=== PATIENT | male | born 1945 | race Caucasian/White ===

== ENCOUNTER 2017-11-03 10:03 | Outpatient (REF) | payer MEDICARE, BC, SELFPAY ==
[2017-11-03 21:41] LABS: ALT 27 U/L (12-78); AST 26 U/L (15-37); Albumin 3.7 g/dL (3.4-5.0); Alkaline Phosphatase 70 U/L (46-116); Anion Gap 10.6 mmol/L (3-11); BUN 24 mg/dL (7-18); Bilirubin, Total 0.4 mg/dL (0.2-1.0); CO2 27.4 mmol/L (21.0-32.0); CREATININE 1.33 mg/dL (0.70-1.30); Calcium 9.3 mg/dL (8.5-10.1); Chloride 102 mmol/L (98-107); Estimated GFR 52.71 (mL/min/1.73m2); Glucose 78 mg/dL (70-100); Potassium 4.9 mmol/L (3.5-5.1); Sodium 140 mmol/L (136-145); TSH (W/Ref FT4) 0.06 uIU/mL (0.358-3.74); Total Protein 7.4 g/dL (6.4-8.2)
[2017-11-03 22:27] LABS: FREE T4 1.38 ng/dL (0.76-1.46)
== END 2017-11-03 10:04 ==
LOC: NCHCN 10:03
PROVIDERS: PCP Internal Medicine; Visit Provider Internal Medicine
DX: E03.9 Hypothyroidism, unspecified (principal); I10 Essential (primary) hypertension; F10.10 Alcohol abuse, uncomplicated
CPT/HCPCS: 80053; 84439; 84443

== ENCOUNTER 2017-12-13 11:41 | Outpatient (REF) | payer MEDICARE, BC, SELFPAY ==
[2017-12-13 20:48] LABS: ALT 30 U/L (12-78); AST 31 U/L (15-37); Albumin 3.6 g/dL (3.4-5.0); Alkaline Phosphatase 74 U/L (46-116); BUN 13 mg/dL (7-18); Bilirubin, Total 0.7 mg/dL (0.2-1.0); CREATININE 1.07 mg/dL (0.70-1.30); Calcium 8.9 mg/dL (8.5-10.1); Chloride 98 mmol/L (98-107); Glucose 113 mg/dL (70-100); Potassium 4.5 mmol/L (3.5-5.1); Sodium 134 mmol/L (136-145); Total Protein 6.9 g/dL (6.4-8.2)
[2017-12-14 19:28] LABS: TSH (W/Ref FT4) 0.09 uIU/mL (0.358-3.74)
== END 2017-12-13 12:01 ==
LOC: NCHCN 11:41
PROVIDERS: PCP Internal Medicine; Visit Provider Internal Medicine
DX: I10 Essential (primary) hypertension (principal); E03.9 Hypothyroidism, unspecified
CPT/HCPCS: 80053; 84439; 84443

== ENCOUNTER 2018-02-28 12:22 | Outpatient (REF) | payer MEDICARE, BC, SELFPAY ==
[2018-02-28 21:47] LABS: TSH (W/Ref FT4) 0.32 uIU/mL (0.358-3.74)
[2018-02-28 22:10] LABS: FREE T4 1.11 ng/dL (0.76-1.46)
== END 2018-02-28 12:42 ==
LOC: NCHCN 12:22
PROVIDERS: PCP Internal Medicine; Visit Provider Internal Medicine
DX: E03.9 Hypothyroidism, unspecified (principal)
CPT/HCPCS: 84439; 84443

== ENCOUNTER 2018-05-03 09:16 | Outpatient (REF) | payer OTHER, SELFPAY ==
[2018-05-03 23:13] LABS: TSH (W/Ref FT4) 7.87 uIU/mL (0.358-3.74)
[2018-05-03 23:33] LABS: FREE T4 1.01 ng/dL (0.76-1.46)
== END 2018-05-03 09:36 ==
LOC: NCHCN 09:16
PROVIDERS: PCP Internal Medicine; Visit Provider Internal Medicine
DX: E03.9 Hypothyroidism, unspecified (principal)
CPT/HCPCS: 84439; 84443

== ENCOUNTER 2019-01-15 13:30 | Outpatient (REF) | payer OTHER, SELFPAY ==
[2019-01-15 22:09] LABS: ALT 21 U/L (16-63); AST 31 U/L (15-37); Albumin 3.8 g/dL (3.4-5.0); Alkaline Phosphatase 96 U/L (46-116); Anion Gap 8.2 mmol/L (3-11); BUN 15 mg/dL (7-18); Bilirubin, Total 0.7 mg/dL (0.2-1.0); CO2 28.8 mmol/L (21.0-32.0); CREATININE 0.94 mg/dL (0.70-1.30); Calcium 9.5 mg/dL (8.5-10.1); Calculated LDL 140 mg/dL; Chloride 103 mmol/L (98-107); Cholesterol 227 mg/dL (50-200); Glucose 86 mg/dL (70-100); HDL Cholesterol 68 mg/dL (40-60); Potassium 4.8 mmol/L (3.5-5.1); Sodium 140 mmol/L (136-145); TSH 2.38 uIU/mL (0.36-3.74); Total Protein 7.6 g/dL (6.4-8.2); Triglyceride 96 mg/dL (30-150)
== END 2019-01-15 13:50 ==
LOC: NCHCN 13:30
PROVIDERS: PCP Internal Medicine; Visit Provider Internal Medicine
DX: I10 Essential (primary) hypertension (principal); E03.9 Hypothyroidism, unspecified; F10.10 Alcohol abuse, uncomplicated
CPT/HCPCS: 80048; 80061; 80076; 84443

== ENCOUNTER 2019-10-09 08:21 | Outpatient (REF) | payer OTHER, SELFPAY ==
[2019-10-09 21:31] LABS: Calculated LDL 154 mg/dL (<100); Cholesterol 219 mg/dL (<200); HDL Cholesterol 53 mg/dL (40-60); Triglyceride 62 mg/dL (<150)
== END 2019-10-09 08:41 ==
LOC: NCHCN 08:21
PROVIDERS: PCP Internal Medicine; Visit Provider Internal Medicine
DX: I10 Essential (primary) hypertension (principal)
CPT/HCPCS: 80061

== ENCOUNTER 2019-12-11 08:39 | Outpatient (REF) | payer OTHER, SELFPAY ==
[2019-12-11 22:02] LABS: Calculated LDL 77 mg/dL (<100); Cholesterol 136 mg/dL (<200); Glucose 84 mg/dL (74-106); HDL Cholesterol 49 mg/dL (40-60); Triglyceride 51 mg/dL (<150)
[2019-12-11 22:17] LABS: C-Reactive Protein 1.97 mg/dL (0.0-0.3)
[2019-12-11 22:56] LABS: ESR 34 mm/hr (1-20)
== END 2019-12-11 08:59 ==
LOC: NCHCN 08:39
PROVIDERS: PCP Internal Medicine; Visit Provider Internal Medicine
DX: E78.5 Hyperlipidemia, unspecified (principal); M31.5 Giant cell arteritis with polymyalgia rheumatica; Z87.39 Personal history of other diseases of the musculoskeletal system and connective tissue
CPT/HCPCS: 80061; 82947; 85652; 86140

== ENCOUNTER 2019-12-27 19:26 | Outpatient (REF) | payer OTHER, SELFPAY ==
[2019-12-31 19:06] LABS: Patient Race White; SARS-CoV-2 RNA Undetected (Undetected); SARS-CoV-2 Specimen Source Nasopharynx
== END 2019-12-27 19:46 ==
LOC: NCHCN 19:26
PROVIDERS: PCP Internal Medicine; Visit Provider Internal Medicine
DX: Z20.828 Contact with and (suspected) exposure to other viral communicable diseases (principal)
CPT/HCPCS: U0003

== ENCOUNTER 2020-02-20 11:58 | Outpatient (REF) | payer OTHER, SELFPAY ==
[2020-02-20 22:34] LABS: TSH 0.14 uIU/mL (0.36-3.74)
== END 2020-02-20 12:18 ==
LOC: NCHCN 11:58
PROVIDERS: PCP Internal Medicine; Visit Provider Internal Medicine
DX: E03.9 Hypothyroidism, unspecified (principal)
CPT/HCPCS: 84443

== ENCOUNTER 2020-04-24 18:43 | Outpatient (REF) | payer OTHER, SELFPAY ==
[2020-04-24 20:57] LABS: TSH 0.19 uIU/mL (0.36-3.74)
== END 2020-04-24 19:03 ==
LOC: NCHCN 18:43
PROVIDERS: PCP Internal Medicine; Visit Provider Internal Medicine
DX: E03.9 Hypothyroidism, unspecified (principal)
CPT/HCPCS: 84443

== ENCOUNTER 2020-07-02 10:31 | Outpatient (REF) | payer OTHER, SELFPAY ==
[2020-07-02 14:38] LABS: TSH 2.16 uIU/mL (0.36-3.74)
== END 2020-07-02 10:32 | disposition home or self-care (01) ==
LOC: NCHCN 10:31
PROVIDERS: PCP Internal Medicine; Visit Provider Internal Medicine
DX: E03.9 Hypothyroidism, unspecified (principal)
CPT/HCPCS: 84443

== ENCOUNTER 2020-11-20 15:43 | Outpatient (REF) | payer OTHER, SELFPAY ==
[2020-11-20 14:44] LABS: Anion Gap 6.9 mmol/L (3-11); BUN 11 mg/dL (7-18); CO2 29.1 mmol/L (21.0-32.0); Calcium 9.2 mg/dL (8.5-10.1); Calculated LDL 63 mg/dL (<100); Chloride 105 mmol/L (98-107); Cholesterol 142 mg/dL (<200); Glucose 83 mg/dL (74-106); HDL Cholesterol 68 mg/dL (40-60); Potassium 4.4 mmol/L (3.5-5.1); Sodium 141 mmol/L (136-145); TSH 10.65 uIU/mL (0.36-3.74); Triglyceride 57 mg/dL (<150)
== END 2020-11-20 15:44 | disposition home or self-care (01) ==
LOC: NCHCN 15:43
PROVIDERS: PCP Internal Medicine; Visit Provider Internal Medicine
DX: E03.9 Hypothyroidism, unspecified (principal); I10 Essential (primary) hypertension; E78.5 Hyperlipidemia, unspecified
CPT/HCPCS: 80048; 80061; 84443

== ENCOUNTER 2021-03-03 10:26 | Outpatient (REF) | payer OTHER, SELFPAY ==
[2021-03-03 15:17] LABS: TSH 9.76 uIU/mL (0.36-3.74)
== END 2021-03-03 10:27 | disposition home or self-care (01) ==
LOC: NCHCN 10:26
PROVIDERS: PCP Internal Medicine; Visit Provider Internal Medicine
DX: E03.9 Hypothyroidism, unspecified (principal)
CPT/HCPCS: 84443

== ENCOUNTER 2021-05-06 09:38 | Outpatient (REF) | payer OTHER, SELFPAY ==
[2021-05-06 15:01] LABS: TSH 0.09 uIU/mL (0.36-3.74)
== END 2021-05-06 09:39 | disposition home or self-care (01) ==
LOC: NCHCN 09:38
PROVIDERS: PCP Internal Medicine; Visit Provider Internal Medicine
DX: E03.9 Hypothyroidism, unspecified (principal)
CPT/HCPCS: 84443

== ENCOUNTER 2021-07-07 09:03 | Outpatient (REF) | payer OTHER, SELFPAY ==
[2021-07-07 16:22] LABS: TSH 0.23 uIU/mL (0.36-3.74)
== END 2021-07-07 09:04 | disposition home or self-care (01) ==
LOC: NCHCN 09:03
PROVIDERS: PCP Internal Medicine; Visit Provider Internal Medicine
DX: E03.9 Hypothyroidism, unspecified (principal)
CPT/HCPCS: 84443

== ENCOUNTER 2021-10-06 15:17 | Outpatient (REF) | payer OTHER, SELFPAY ==
[2021-10-06 15:45] LABS: TSH 2.19 uIU/mL (0.36-3.74)
== END 2021-10-06 15:18 | disposition home or self-care (01) ==
LOC: NCHCN 15:17
PROVIDERS: Visit Provider Internal Medicine
DX: E03.9 Hypothyroidism, unspecified (principal)
CPT/HCPCS: 84443

== ENCOUNTER 2021-10-21 18:26 | Outpatient (REF) | payer OTHER, SELFPAY ==
[2021-10-21 22:03] LABS: Abs Immature Grans 0.02 10^3/uL (0.0-0.06); Absolute Basophil Count 0.04 10^3/uL (0.0-0.2); Absolute Eosinophil Count 0.21 10^3/uL (0.0-0.7); Absolute Lymphocyte Count 1.83 10^3/uL (1.2-3.4); Absolute Monocyte Count 0.52 10^3/uL (0.1-0.8); Basophils % 0.6; Eosinophils % 3.4; HCT 36.9 % (40.0-50.0); HGB 12.8 g/dL (13.5-17.5); Immature Grans % 0.3; Lymphocytes % 29.4; MCH 30.9 pg (27.0-33.0); MCHC 34.7 % (32.0-36.0); MCV 89 fL (80-95); MPV 10.3 fL (8.0-11.0); Monocytes % 8.4; Neutrophils % 57.9; Platelet Count 233 10^3/uL (130-400); RBC 4.14 10^6/uL (4.36-5.78); RDW 12.7 % (11.8-14.1); RDW-SD 41.8 fL; WBC 6.22 10^3/uL (4.4-10.8)
[2021-10-21 22:27] LABS: ALT 31 U/L (16-63); AST 31 U/L (15-37); Albumin 3.6 g/dL (3.4-5.0); Alkaline Phosphatase 76 U/L (46-116); Anion Gap 7.9 mmol/L (3-11); BUN 16 mg/dL (7-18); Bilirubin, Total 0.6 mg/dL (0.2-1.0); CO2 27.1 mmol/L (21.0-32.0); CREATININE 1.1 mg/dL (0.70-1.30); Calcium 8.6 mg/dL (8.5-10.1); Chloride 98 mmol/L (98-107); Ferritin 56 ng/mL (26-388); Glucose 84 mg/dL (74-106); Potassium 4.5 mmol/L (3.5-5.1); Sodium 133 mmol/L (136-145); Total Protein 6.4 g/dL (6.4-8.2)
[2021-10-22 21:23] LABS: PSA, Screening 4.6 ng/mL (<=6.5)
== END 2021-10-21 18:27 | disposition home or self-care (01) ==
LOC: NCHCN 18:26
PROVIDERS: Visit Provider Nurse Practitioner Family
DX: R53.83 Other fatigue (principal); Z12.5 Encounter for screening for malignant neoplasm of prostate; D64.9 Anemia, unspecified
CPT/HCPCS: 80053; 84153; 82728; 85025

== ENCOUNTER 2021-11-17 18:26 | Outpatient (REF) | payer OTHER, SELFPAY ==
[2021-11-17 17:42] LABS: Abs Immature Grans 0.02 10^3/uL (0.0-0.06); Absolute Basophil Count 0.04 10^3/uL (0.0-0.2); Absolute Eosinophil Count 0.17 10^3/uL (0.0-0.7); Absolute Monocyte Count 0.52 10^3/uL (0.1-0.8); Basophils % 0.7; HCT 36.5 % (40.0-50.0); HGB 12.3 g/dL (13.5-17.5); Immature Grans % 0.3; Lymphocytes % 22.6; MCH 30.8 pg (27.0-33.0); MCHC 33.7 % (32.0-36.0); MCV 92 fL (80-95); Neutrophils % 64.4; Platelet Count 262 10^3/uL (130-400); RBC 3.99 10^6/uL (4.36-5.78); RDW 13.2 % (11.8-14.1); RDW-SD 44.6 fL; Reticulocyte 1.2 % (0.5-2.4); WBC 5.75 10^3/uL (4.4-10.8)
[2021-11-17 18:04] LABS: Iron 57 ug/dL (65-175); Total Iron Binding Capacity 315 ug/dL (250-450); Transferrin Sat 18 % (20-55)
[2021-11-17 18:26] LABS: Ferritin 59 ng/mL (26-388); Folate 5.8 ng/mL (8.6-20.0); Vitamin B12 533 pg/mL (193-986)
[2021-11-19 09:50] LABS: Transferrin 231 mg/dL (201-352)
== END 2021-11-17 18:27 | disposition home or self-care (01) ==
LOC: NCHCN 18:26
PROVIDERS: Visit Provider Nurse Practitioner Family
DX: D64.9 Anemia, unspecified (principal); D52.8 Other folate deficiency anemias
CPT/HCPCS: 82607; 82728; 82746; 83540; 83550; 84466; 85025; 85045

== ENCOUNTER 2021-11-25 16:49 | Outpatient (REF) | payer OTHER, SELFPAY ==
[2021-11-25 21:15] LABS: ESR 3 mm/hr (0-20)
[2021-11-25 21:30] LABS: C-Reactive Protein < 0.05 mg/dL (0.0-0.3)
[2021-11-25 21:34] LABS: Epithelial Cells Rare HPF (Negative); RBC 0-2 HPF (0-2); WBC Negative HPF (0-5)
[2021-11-25 21:35] LABS: Bacteria Rare HPF (Negative); C & S Indicated? No; Crystals Negative HPF (Negative); Mucus Negative (Negative)
[2021-11-30 12:42] LABS: IgA 518 mg/dL (85-499); Interpretation (See Note); Tissue Transglutaminase IgA 1.5 U/mL (<4.0)
== END 2021-11-25 16:50 | disposition home or self-care (01) ==
LOC: NCHCN 16:49
PROVIDERS: Visit Provider Nurse Practitioner Family
DX: D64.9 Anemia, unspecified (principal); Z79.1 Long term (current) use of non-steroidal anti-inflammatories (NSAID); R53.83 Other fatigue
CPT/HCPCS: 82784; 83516; 85652; 81015; 86140

== ENCOUNTER 2022-01-20 15:09 | Outpatient (REF) | payer OTHER, SELFPAY ==
[2022-01-20 14:15] LABS: HCT 37.4 % (40.0-50.0); HGB 12.8 g/dL (13.5-17.5); MCH 30.5 pg (27.0-33.0); MCHC 34.2 % (32.0-36.0); MCV 89 fL (80-95); Platelet Count 285 10^3/uL (130-400); RBC 4.19 10^6/uL (4.36-5.78); RDW 12.4 % (11.8-14.1); RDW-SD 40.4 fL; WBC 5.45 10^3/uL (4.4-10.8)
[2022-01-20 14:40] LABS: Ferritin 97 ng/mL (26-388)
[2022-01-20 14:42] LABS: Folate > 20.0 ng/mL (8.6-20.0)
== END 2022-01-20 15:10 | disposition home or self-care (01) ==
LOC: NCHCN 15:09
PROVIDERS: Visit Provider Nurse Practitioner Family
DX: D64.9 Anemia, unspecified (principal)
CPT/HCPCS: 85027; 82728; 82746; 83540; 83550

== ENCOUNTER 2022-07-26 11:04 | Outpatient (REF) | payer OTHER, SELFPAY ==
[2022-07-26 15:01] LABS: HCT 41.6 % (40.0-50.0); MCH 30.6 pg (27.0-33.0); MCHC 33.7 % (32.0-36.0); MCV 91 fL (80-95); MPV 10.5 fL (8.0-11.0); Platelet Count 241 10^3/uL (130-400); RBC 4.58 10^6/uL (4.36-5.78); RDW 12.6 % (11.8-14.1); RDW-SD 41.5 fL; WBC 5.62 10^3/uL (4.4-10.8)
[2022-07-26 16:04] LABS: ALT 41 U/L (16-63); AST 36 U/L (15-37); Albumin 3.7 g/dL (3.4-5.0); Alkaline Phosphatase 84 U/L (46-116); BUN 9 mg/dL (7-18); Calcium 9.1 mg/dL (8.5-10.1); Calculated LDL 76 mg/dL (<100); Chloride 100 mmol/L (98-107); Cholesterol 153 mg/dL (<200); Estimated GFR 77.04 (mL/min/1.73m2); Ferritin 102 ng/mL (26-388); Glucose 89 mg/dL (74-106); HDL Cholesterol 64 mg/dL (40-60); Potassium 4.7 mmol/L (3.5-5.1); Sodium 135 mmol/L (136-145); TSH 0.32 uIU/mL (0.36-3.74); Total Protein 7.1 g/dL (6.4-8.2); Triglyceride 65 mg/dL (<150)
== END 2022-07-26 11:05 | disposition home or self-care (01) ==
LOC: NCHCN 11:04
PROVIDERS: PCP Internal Medicine; Visit Provider Internal Medicine
DX: E78.5 Hyperlipidemia, unspecified (principal); I10 Essential (primary) hypertension; E03.9 Hypothyroidism, unspecified; Z86.2 Personal history of diseases of the blood and blood-forming organs and certain disorders involving the immune mechanism
CPT/HCPCS: 80053; 80061; 85027; 82728; 84443

== ENCOUNTER 2022-11-02 08:52 | Outpatient (REF) | payer OTHER, SELFPAY ==
--- OUTSIDE RECORDS SUMMARY | 2022-11-02 08:56 | XMS_ITS | CCD ---
Author Name Unknown Address [address] [place] [address] [phone] Organization Unknown Address [address] [place] [address] [phone] Care Team Providers Care Exercise Manager Name Role Phone MEGAN VIRAJ Attending Physician [phone] Vital Signs Unknown or Not Available. Allergies Allergy Code Allergy Type Reaction Status No Known Allergies 0 No known allergies Active Procedures Unknown or Not Available. History of Immunizations Unknown or Not Available. Problems Unknown or Not Available. Results [facility] - [place] ect Date/Time: 03/20/2021 09:54 Test Name Code Test Result Test Units Test Ref Rang e SOURCE= Anterior nasal N/A Tier- PRE-OP N/A SARS COV2 RNA: 29457-4 NEGATIVE N/A REFERENCE RANGE: NEGAT Active Medications Unknown or Not Available. Medications Administered During Visit Unknown or Not Available. Encounters Encounter Diagnosis Diagnosis Code Start Date Pre-surgery testing [id number] 03/20/2021 Social History Smoking Status Code Start Date End Date Never smoker [id number] Patient Decision Aids Unknown or Not Available. Discharge Instructions You were admitted to [facility] on 03/20/2021 08:03 with a principal diagnosis of Encounter for preprocedural laboratory examination You had the following tests done:CRYSTAL COVID RHEONIX* You were discharged from [facility] on 03/20/2021 08:03 Should you have any questions prior to discharge, please contact a member of your healthcare team. If you have left the hospital and have any questions, please contact your primary care physician. Chief Complaint and Reason For Visit Unknown or Not Available. Function Status Unknown or Not Available. Plan of Care Unknown or Not Available. Referral/Transition of Care Unknown or Not Available.
--- OUTSIDE RECORDS SUMMARY | 2022-11-02 08:56 | XMS_ITS | CCD ---
Author Name Unknown Address [address] [place] [address] [id number] Organization Unknown Address [address] [place] [address] [phone] Care Team Providers Care Oil Well Service Operator Name Role Phone ALLI COSME Attending Physician [phone] ALLI COSME Rounding (Secondary) Physicia n [phone] Vital Signs Unknown or Not Available. Allergies Allergy Code Allergy Type Reaction Status No Known Allergies 0 No known allergies Active Procedures Unknown or Not Available. History of Immunizations Unknown or Not Available. Problems Unknown or Not Available. Results Unknown or Not Available. Active Medications Unknown or Not Available. Medications Administered During Visit Unknown or Not Available. Encounters Encounter Diagnosis Diagnosis Code Start Date Metatarsalgia, left foot [id number] Social History Smoking Status Code Start Date End Date Never smoker [id number] Patient Decision Aids Unknown or Not Available. Discharge Instructions You were admitted to [facility] on 07/01/2021 13:01 with a principal diagnosis of Metatarsalgia, left foot You were discharged from [facility] on 07/01/2021 00:00 Should you have any questions prior to [...]
--- OUTSIDE RECORDS SUMMARY | 2022-11-02 08:56 | XMS_ITS | CCD ---
Author Name Unknown Address [address] [place] [address] [phone] Organization Unknown Address [address] [place] [address] [phone] Care Team Providers Care Laborer Pipeline Name Role Phone MEGAN VIRAJ Attending Physician [phone] Vital Signs Unknown or Not Available. Allergies Allergy Code Allergy Type Reaction Status No Known Allergies 0 No known allergies Active Procedures Procedure Code Procedure Type Date Colorectal Cancer Screening; Colonoscopy On Individual At High Risk G0105 CPT 03/23/2021 History of Immunizations Unknown or Not Available. Problems Unknown or Not Available. Results Unknown or Not Available. Active Medications Unknown or Not Available. Medications Administered During Visit Unknown or Not Available. Encounters Encounter Diagnosis Diagnosis Code Start Date Encounter for screening for malignant neoplasm o f colon Z1211 03/23/2021 Social History Smoking Status Code Start Date End Date Never smoker [id number] Patient Decision Aids Unknown or Not Available. Discharge Instructions You were admitted to [facility] on 03/23/2021 09:51 with a principal diagnosis of Encounter for screening for malignant neoplasm of colon You had the following procedures done:Colorectal Cancer Screening; Colonoscopy On Individual At High Risk You were discharged from [facility] on 03/23/2021 11:54 Should you have any questions prior to [...]
--- OUTSIDE RECORDS SUMMARY | 2022-11-02 08:56 | XMS_ITS | CCD ---
Author Name Unknown Address [address] [place] [address] [id number] Organization Unknown Address [address] [place] [address] [phone] Care Team Providers Care Coin Machine Collector Supervisor Name Role Phone ALLI COSME Attending Physician [phone] ALLI COSME Rounding (Secondary) Physicia n [phone] Vital Signs Unknown or Not Available. Allergies [...] Encounters Encounter Diagnosis Diagnosis Code Start Date Onychomycosis due to dermatophyte [id number] 06/24/2021 Social History Smoking Status Code Start Date End Date Never smoker [id number] Patient Decision Aids Unknown or Not Available. Discharge Instructions You were admitted to [facility] on 06/24/2021 09:52 with a principal diagnosis of Tinea unguium You were discharged from [facility] on 06/24/2021 00:00 Should you have any questions prior [...]
--- OUTSIDE RECORDS SUMMARY | 2022-11-02 08:56 | XMS_ITS | CCD ---
Author Name Unknown Address [address] [place] [address] [phone] Organization Unknown Address [address] [place] [address] [phone] Care Team Providers Care Automatic Mounter Name Role Phone VIRAJ GUZMAN Attending Physician [phone] VIRAJ GUZMAN Rounding (Secondary) Physician [phone] Vital Signs Unknown or Not Available. Allergies [...] Code Start Date End Date Never smoker [id number] Patient Decision Aids Unknown or Not Available. Discharge Instructions You were admitted to [facility] on 03/23/2021 10:42 with a principal diagnosis of Encounter for screening for malignant neoplasm of colon You were discharged from [facility] on 03/23/2021 10:44 Should you have any questions prior to [...]
--- OUTSIDE RECORDS SUMMARY | 2022-11-02 08:57 | XMS_ITS | CCD ---
Author Name Unknown Address [address] [place] [address] [id number] Organization Unknown Address [address] [place] [address] [phone] Care Team Providers Care Residential Housekeeper Name Role Phone TIFFANIE MCCRARY Attending Physician [phone] TIFFANIE MCCRARY Rounding (Secondary) Physician [phone] Vital Signs Unknown or Not Available. Allergies [...] Encounters Encounter Diagnosis Diagnosis Code Start Date Hip joint prosthesis present [id number] Social History Smoking Status Code Start Date End Date Never smoker 743454403 Patient Decision Aids Unknown or Not Available. Discharge Instructions You were admitted to [facility] on 08/21/2021 09:17 with a principal diagnosis of Presence of left artificial hip joint You were discharged from [facility] on 08/21/2021 00:00 Should you have any questions prior [...]
--- OUTSIDE RECORDS SUMMARY | 2022-11-02 08:57 | XMS_ITS | CCD ---
Author Name Unknown Address [address] [place] [address] [phone] Organization Unknown Address [address] [place] [address] [phone] Care Team Providers Care Psych Therapist Name Role Phone TIFFANIE MCCRARY Attending Physician [phone] Vital Signs Unknown or Not Available. Allergies [...] Encounters Encounter Diagnosis Diagnosis Code Start Date Presence of left artificial hip joint [id number] 08/21/2021 Social History Smoking Status Code Start Date End Date Never smoker 891111932 Patient Decision Aids Unknown or Not Available. Discharge Instructions You were admitted to [facility] on 08/21/2021 12:20 with a principal diagnosis of Presence of left artificial hip joint You were discharged from [facility] on 08/21/2021 12:20 Should you have any questions prior to [...]
--- OUTSIDE RECORDS SUMMARY | 2022-11-02 08:57 | XMS_ITS | CCD ---
Author Name Unknown Address [address] [place] [address] [phone] Organization Unknown Address [address] [place] [address] [phone] Care Team Providers Care Guidance Secretary Name Role Phone ALLI COSME Attending Physician [phone] ALLI COSME Rounding (Secondary) Physicia n [phone] Vital Signs Unknown or Not Available. Allergies [...] Code Start Date End Date Never smoker 850728136 Patient Decision Aids Unknown or Not Available. Discharge Instructions You were admitted to [facility] on 07/31/2021 16:26 with a principal diagnosis of Metatarsalgia, left foot You were discharged from [facility] on 07/31/2021 00:00 Should you have any questions prior [...]
--- OUTSIDE RECORDS SUMMARY | 2022-11-02 08:57 | XMS_ITS | CCD ---
Author Name Unknown Address [address] [place] [address] [phone] Organization Unknown Address [address] [place] [address] [phone] Care Team Providers Care Formula Weigher Name Role Phone DANIEL THOMAS Attending Physician [phone] Vital Signs Unknown or Not Available. Allergies [...] Encounters Encounter Diagnosis Diagnosis Code Start Date Personal history of nicotine dependence U41086 02/23/2022 Social History Smoking Status Code Start Date End Date Never smoker 349390263 Patient Decision Aids Unknown or Not Available. Discharge Instructions You were admitted to [facility] on 02/23/2022 07:44 with a principal diagnosis of Personal history of nicotine dependence You were discharged from [facility] on 02/23/2022 07:44 Should you have any questions prior to discharge, please contact a member of your healthcare team. If you have left the hospital and have any questions, please contact your primary care physician. Chief Complaint and Reason For Visit Chief Complaint Date of Onset AAA SCREENING Function Status Unknown or Not Available. Plan of Care Unknown or Not Available. Referral/Transition of Care Unknown or Not Available.
--- OUTSIDE RECORDS SUMMARY | 2022-11-02 08:57 | XMS_ITS | CCD ---
Author Name Unknown Address [address] [place] [address] [phone] Organization Unknown Address [address] [place] [address] [phone] Care Team Providers Care Rn Case Management Name Role Phone ALLI COSME Attending Physician [phone] ALLI COSME Rounding (Secondary) Physicia n [phone] Vital Signs Unknown or Not Available. Allergies [...] Encounters Encounter Diagnosis Diagnosis Code Start Date Ingrowing nail [id number] 03/12/2022 Social History Smoking Status Code Start Date End Date Never smoker 785448179 Patient Decision Aids Unknown or Not Available. Discharge Instructions You were admitted to [facility] on 03/12/2022 10:20 with a principal diagnosis of Ingrowing nail You were discharged from [facility] on 03/12/2022 00:00 Should you have any questions prior [...]
--- OUTSIDE RECORDS SUMMARY | 2022-11-02 08:57 | XMS_ITS | CCD ---
Author Name Unknown Address [address] [place] [address] [phone] Organization Unknown Address [address] [place] [address] [phone] Care Team Providers Care Welfare Analyst Name Role Phone ALLI COSME Attending Physician [phone] ALLI COSME Rounding (Secondary) Physicia n [phone] Vital Signs Unknown or Not Available. Allergies [...] Diagnosis Diagnosis Code Start Date Ingrowing nail [id number] 05/03/2022 Social History Smoking Status Code Start Date End Date Never smoker 293836205 Patient Decision Aids Unknown or Not Available. Discharge Instructions You were admitted to [facility] on 05/03/2022 08:55 with a principal diagnosis of Ingrowing nail You were discharged from [facility] on 05/03/2022 00:00 Should you have any questions prior [...]
--- OUTSIDE RECORDS SUMMARY | 2022-11-02 09:00 | XMS_ITS | CCD ---
Author Name Unknown Address [address] [place] [address] [phone] Organization Unknown Address [address] [place] [address] [phone] Care Team Providers Care Field Clinical Engineer Name Role Phone RENÉE CINTRON MD Attending Physician [phone] Vital Signs Unknown or Not Available. Allergies [...] Encounters Encounter Diagnosis Diagnosis Code Start Date Aftercare [id number] 10/20/2020 Social History Smoking Status Code Start Date End Date Never smoker 470677687 Patient Decision Aids Unknown or Not Available. Discharge Instructions You were admitted to [facility] on 10/20/2020 11:28 with a principal diagnosis of Aftercare following joint replacement surgery You were discharged from [facility] on 10/20/2020 11:28 Should you have any questions prior to [...]
[2022-11-02 15:43] LABS: TSH 1.67 uIU/mL (0.36-3.74)
== END 2022-11-02 08:53 | disposition home or self-care (01) ==
LOC: NCHCN 08:52
PROVIDERS: PCP Internal Medicine; Visit Provider Internal Medicine
DX: E03.9 Hypothyroidism, unspecified (principal)
CPT/HCPCS: 84443

== ENCOUNTER 2023-01-24 09:56 | Outpatient (REF) | payer MEDICARE, SELFPAY ==
[2023-01-24 16:03] LABS: HCT 38.3 % (40.0-50.0); MCHC 33.9 % (32.0-36.0); MCV 91 fL (80-95); MPV 10.7 fL (8.0-11.0); Platelet Count 202 10^3/uL (130-400); RBC 4.19 10^6/uL (4.36-5.78); RDW 13.4 % (11.8-14.1); RDW-SD 44.9 fL; WBC 4.54 10^3/uL (4.4-10.8)
[2023-01-24 16:58] LABS: ALT 29 U/L (16-63); AST 35 U/L (15-37); Albumin 3.7 g/dL (3.4-5.0); Alkaline Phosphatase 88 U/L (46-116); BUN 11 mg/dL (7-18); Bilirubin, Total 0.8 mg/dL (0.2-1.0); Calcium 9.5 mg/dL (8.5-10.1); Chloride 101 mmol/L (98-107); Estimated GFR 76.56 (mL/min/1.73m2); Ferritin 105 ng/mL (26-388); Glucose 89 mg/dL (74-106); Sodium 135 mmol/L (136-145); Total Protein 6.9 g/dL (6.4-8.2)
== END 2023-01-24 09:57 | disposition home or self-care (01) ==
LOC: NCHCN 09:56
PROVIDERS: PCP Internal Medicine; Visit Provider Internal Medicine
DX: Z86.2 Personal history of diseases of the blood and blood-forming organs and certain disorders involving the immune mechanism (principal); E87.1 Hypo-osmolality and hyponatremia; E78.5 Hyperlipidemia, unspecified
CPT/HCPCS: 80053; 85027; 82728

== ENCOUNTER 2023-08-08 14:39 | Outpatient (REF) | payer MEDICARE, SELFPAY ==
[2023-08-08 15:57] LABS: Abs Immature Grans 0.02 10^3/uL (0.0-0.06); Absolute Basophil Count 0.06 10^3/uL (0.0-0.2); Absolute Eosinophil Count 0.25 10^3/uL (0.0-0.7); Absolute Lymphocyte Count 1.55 10^3/uL (1.2-3.4); Absolute Monocyte Count 0.48 10^3/uL (0.1-0.8); Eosinophils % 4.2 %; HCT 40.7 % (40.0-50.0); HGB 13.5 g/dL (13.5-17.5); Immature Grans % 0.3 %; MCH 30.8 pg (27.0-33.0); MCHC 33.2 % (32.0-36.0); MCV 93 fL (80-95); MPV 10.6 fL (8.0-11.0); Monocytes % 8.1 %; Neutrophils % 60.4 %; Platelet Count 222 10^3/uL (130-400); RBC 4.38 10^6/uL (4.36-5.78); RDW 13.2 % (11.8-14.1); RDW-SD 45.1 fL; WBC 5.96 10^3/uL (4.4-10.8)
[2023-08-08 16:23] LABS: Anion Gap 5.7 mmol/L (3-11); BUN 16 mg/dL (7-18); CO2 28.3 mmol/L (21.0-32.0); Calcium 8.9 mg/dL (8.5-10.1); Chloride 104 mmol/L (98-107); Estimated GFR 76.56 (mL/min/1.73m2); Glucose 93 mg/dL (74-106); Potassium 4.6 mmol/L (3.5-5.1); Sodium 138 mmol/L (136-145); TSH 0.42 uIU/Ml (0.36-3.74)
== END 2023-08-08 14:40 | disposition home or self-care (01) ==
LOC: NCHCN 14:39
PROVIDERS: PCP Internal Medicine; Visit Provider Internal Medicine
DX: D64.9 Anemia, unspecified (principal); E03.9 Hypothyroidism, unspecified; R03.0 Elevated blood-pressure reading, without diagnosis of hypertension
CPT/HCPCS: 80048; 84443; 85025

== ENCOUNTER 2024-02-21 08:55 | Outpatient (REF) | payer MEDICARE, SELFPAY ==
[2024-02-21 14:44] LABS: HGB 13.6 g/dL (13.5-17.5); MCH 30.8 pg (27.0-33.0); MCV 91 fL (80-95); MPV 10.6 fL (8.0-11.0); Platelet Count 230 10^3/uL (130-400); RBC 4.41 10^6/uL (4.36-5.78); RDW 12.6 % (11.8-14.1); RDW-SD 42.2 fL
[2024-02-21 15:06] LABS: TSH 1.71 uIU/mL (0.36-3.74)
[2024-02-26 09:12] LABS: Testosterone, Total 724 ng/dL (240-950)
== END 2024-02-21 08:56 | disposition home or self-care (01) ==
LOC: NCHCN 08:55
PROVIDERS: PCP Internal Medicine; Visit Provider Internal Medicine
DX: E03.9 Hypothyroidism, unspecified (principal)
CPT/HCPCS: 84403; 85027; 84443

== ENCOUNTER 2024-09-13 16:38 | Outpatient (REF) | payer MEDICARE, SELFPAY ==
[2024-09-13 20:41] LABS: HCT 36.5 % (40.0-50.0); HGB 12.5 g/dL (13.5-17.5); MCH 31.3 pg (27.0-33.0); MCHC 34.2 % (32.0-36.0); MCV 91 fL (80-95); MPV 10.2 fL (8.0-11.0); Platelet Count 201 10^3/uL (130-400); RDW 12.3 % (11.8-14.1); RDW-SD 41.1 fL; WBC 6.02 10^3/uL (4.4-10.8)
[2024-09-13 21:18] LABS: ALT 45 U/L (16-63); AST 46 U/L (15-37); Albumin 3.7 g/dL (3.4-5.0); Alkaline Phosphatase 76 U/L (46-116); Anion Gap 5.6 mmol/L (3-11); BUN 17 mg/dL (7-18); CO2 28.4 mmol/L (21.0-32.0); CREATININE 1.1 mg/dL (0.70-1.30); Calcium 9.1 mg/dL (8.5-10.1); Chloride 97 mmol/L (98-107); Estimated GFR 67.86 (mL/min/1.73m2); Glucose 91 mg/dL (74-106); Potassium 4.5 mmol/L (3.5-5.1); Sodium 131 mmol/L (136-145); TSH 4.45 uIU/mL (0.36-3.74); Total Protein 6.9 g/dL (6.4-8.2)
== END 2024-09-13 16:39 | disposition home or self-care (01) ==
LOC: NCHCN 16:38
PROVIDERS: PCP Internal Medicine; Visit Provider Internal Medicine
DX: E03.9 Hypothyroidism, unspecified (principal)
CPT/HCPCS: 80053; 85027; 84443

== ENCOUNTER 2024-10-29 16:06 | Outpatient (REF) | payer MEDICARE, SELFPAY ==
[2024-10-29 21:54] LABS: HCT 34.9 % (40.0-50.0); HGB 11.7 g/dL (13.5-17.5); MCH 30.5 pg (27.0-33.0); MCHC 33.5 % (32.0-36.0); MCV 91 fL (80-95); MPV 10.7 fL (8.0-11.0); Platelet Count 200 10^3/uL (130-400); RBC 3.83 10^6/uL (4.36-5.78); RDW 12.3 % (11.8-14.1); RDW-SD 41.1 fL; WBC 5.85 10^3/uL (4.4-10.8)
[2024-10-29 22:16] LABS: Iron 92 ug/dL (65-175); Total Iron Binding Capacity 296 ug/dL (250-450); Transferrin Sat 31 % (20-55)
[2024-10-29 22:23] LABS: ALT 45 U/L (16-63); AST 53 U/L (15-37); Albumin 3.6 g/dL (3.4-5.0); Alkaline Phosphatase 83 U/L (46-116); Anion Gap 8.2 mmol/L (3-11); BUN 15 mg/dL (7-18); Bilirubin, Total 0.8 mg/dL (0.2-1.0); CO2 26.8 mmol/L (21.0-32.0); Calcium 9.3 mg/dL (8.5-10.1); Chloride 97 mmol/L (98-107); Estimated GFR 76.08 (mL/min/1.73m2); Ferritin 81 ng/mL (26-388); Glucose 95 mg/dL (74-106); Potassium 4.1 mmol/L (3.5-5.1); Sodium 132 mmol/L (136-145); TSH 4.02 uIU/mL (0.36-3.74); Total Protein 6.7 g/dL (6.4-8.2)
[2024-10-31 09:37] LABS: HBs Antibody, Quant <3.1 mIU/mL (See Note); Hepatitis B Surface Ab Negative (See Note)
[2024-10-31 10:15] LABS: Hepatitis C Ab w Rflx HCV PCR Negative (Negative)
[2024-10-31 10:27] LABS: Hep B Core Antibody Negative (Negative)
[2024-10-31 10:55] LABS: Hep A Total Ab w Rflx IgM Positive (Negative)
== END 2024-10-29 16:07 | disposition home or self-care (01) ==
LOC: NCHCN 16:06
PROVIDERS: PCP Internal Medicine; Visit Provider Internal Medicine
DX: K76.89 Other specified diseases of liver (principal); D64.9 Anemia, unspecified; E03.9 Hypothyroidism, unspecified; R94.5 Abnormal results of liver function studies
CPT/HCPCS: 80053; 85027; 86704; 86706; 86709; 86803; 87340; 82728; 83540; 83550; 84443

== ENCOUNTER 2024-11-02 13:05 | Outpatient (REF) | payer MEDICARE, SELFPAY ==
[2024-11-02 16:07] LABS: Sodium, Urine 67 mmol/L
[2024-11-02 16:08] LABS: Vitamin B12 1080 pg/mL (193-986)
[2024-11-02 16:12] LABS: Folate > 20.0 ng/mL (8.6-20.0)
[2024-11-02 21:54] LABS: Osmolality, Urine 362 mOsm/kg (150-1150)
[2024-11-07 19:10] LABS: Liver/Kidney Microsome Type 1 <5.0 U
== END 2024-11-02 13:06 | disposition home or self-care (01) ==
LOC: NCHCN 13:05
PROVIDERS: PCP Internal Medicine; Visit Provider Internal Medicine
DX: K76.0 Fatty (change of) liver, not elsewhere classified (principal); D64.9 Anemia, unspecified; R53.83 Other fatigue; E87.1 Hypo-osmolality and hyponatremia
CPT/HCPCS: 82533; 83516; 83935; 82607; 82746; 84300; 85045; 86255

== ENCOUNTER 2025-01-07 15:02 | Outpatient (REF) | payer MEDICARE, SELFPAY ==
[2025-01-07 15:42] LABS: HCT 38.8 % (40.0-50.0); HGB 12.8 g/dL (13.5-17.5); MCH 30.3 pg (27.0-33.0); MCHC 33.0 % (32.0-36.0); MCV 92 fL (80-95); MPV 10.8 fL (8.0-11.0); Platelet Count 193 10^3/uL (130-400); RBC 4.23 10^6/uL (4.36-5.78); RDW 12.5 % (11.8-14.1); RDW-SD 41.7 fL; WBC 4.79 10^3/uL (4.4-10.8)
[2025-01-07 16:05] LABS: ALT 34 U/L (16-63); AST 39 U/L (15-37); Albumin 3.7 g/dL (3.4-5.0); Alkaline Phosphatase 82 U/L (46-116); Anion Gap 7.4 mmol/L (3-11); BUN 15 mg/dL (7-18); Bilirubin, Total 0.6 mg/dL (0.2-1.0); CO2 27.6 mmol/L (21.0-32.0); Calcium 9.0 mg/dL (8.5-10.1); Chloride 99 mmol/L (98-107); Estimated GFR 86.34 (mL/min/1.73m2); Glucose 80 mg/dL (74-106); Potassium 4.7 mmol/L (3.5-5.1); Sodium 134 mmol/L (136-145); TSH 2.06 uIU/mL (0.36-3.74); Total Protein 6.9 g/dL (6.4-8.2)
== END 2025-01-07 15:03 | disposition home or self-care (01) ==
LOC: NCHCN 15:02
PROVIDERS: PCP Internal Medicine; Visit Provider Internal Medicine
DX: K76.0 Fatty (change of) liver, not elsewhere classified (principal)
CPT/HCPCS: 80053; 85027; 84443